=== PATIENT | female | born 1980 | race Caucasian/White ===

== ENCOUNTER 2017-07-11 10:21 | Emergency (ER) | payer OTHER ==
[~2017-07-11] VITALS: Ht 162.6 cm; Wt 76.2 kg
[2017-07-11 10:31] VITALS: BP 134/74
[2017-07-11] MEDS ORDERED: NORCO 5-325 TA1 EACH PO (10:43)
[2017-07-11] MEDS ORDERED: AMOXICILLIN 50500 MG PO (10:43)
== END 2017-07-11 10:50 | disposition home or self-care (01) ==
LOC: M.ERS 10:21
DX: K02.9 Dental caries, unspecified (principal); F17.210 Nicotine dependence, cigarettes, uncomplicated; Z90.49 Acquired absence of other specified parts of digestive tract